=== PATIENT | male | born 1985 | race Two or more races ===

== ENCOUNTER 2017-03-23 19:31 | Emergency (ER) | payer OTHER ==
[~2017-03-23 19:31] MED LIST: FLEXERIL10 MG PO; VICODIN PO
== END 2017-03-23 20:41 | disposition home or self-care (01) ==
LOC: CED 19:31 → CFTX 19:31 → CED 20:26 → CFTX 20:26
DX: S81.851A Open bite, right lower leg, initial encounter (principal); Z23 Encounter for immunization; F17.210 Nicotine dependence, cigarettes, uncomplicated; W54.0XXA Bitten by dog, initial encounter; Y99.0 Civilian activity done for income or pay
CPT/HCPCS: 90471; 90715; 99283